=== PATIENT | female | born 1975 | race Caucasian/White ===

== ENCOUNTER 2017-05-21 20:39 | Emergency (ER) | payer BC, MEDICAID ==
[~2017-05-21] VITALS: Ht 167.6 cm; Wt 79.0 kg
[~2017-05-21 20:39] MED LIST: LORA1TAB PO
[2017-05-21 20:43] VITALS: BP 120/70
== END 2017-05-21 23:26 | disposition left against medical advice (07) ==
LOC: ER 21:08
DX: R55 Syncope and collapse (principal); F41.9 Anxiety disorder, unspecified; I10 Essential (primary) hypertension; Z83.3 Family history of diabetes mellitus; Z88.0 Allergy status to penicillin
CPT/HCPCS: 99283